=== PATIENT | female | born 1970 ===

== ENCOUNTER 2022-12-19 19:31 | Outpatient (CLI) | payer OTHER, SELFPAY ==
--- NOTE | 2022-12-23 08:46 | W.PM.SLEEP ---
Sleep Study Details Details Interpreting Provider: Viri Date of Sleep Study: 12/19/22 Sleep Study Details: STUDY TYPE:? Home unattended ? BMI:? 32.6 ORDERING PROVIDER:? Viri INDICATION:? Concerns about sleep apnea ? SLEEP SUMMARY:? 488.8 minutes monitored RESPIRATORY SUMMARY:? AHI 9.2 with minimal positional variation Low oxygen 89 Snoring 17.7% PERIODIC LIMB MOVEMENTS OF SLEEP:? Not recorded during home study CARDIAC:? Range 49-82, mean 61.3 IMPRESSION:? Mild obstructive sleep apnea RECOMMENDATION: Treatment options would include CPAP AutoSet 4-17, dental appliance and/or airway expansion surgery.
== END 2022-12-19 19:32 | disposition home or self-care (01) ==
LOC: SLEEP 19:31
PROVIDERS: Visit Provider Otolaryngology
DX: G47.33 Obstructive sleep apnea (adult) (pediatric) (principal)
CPT/HCPCS: 95806

== ENCOUNTER 2023-04-01 08:14 | Day surgery (SDC) | payer OTHER, SELFPAY ==
[2023-04-01] VITALS (17 sets, daily range): BP systolic 130–164; BP diastolic 60–93; PULSE 60–78; RESP 12–16; TEMP 36.2–36.5; O2SAT 93–100; BMI 33.8
[2023-04-01] MEDS: OXYMETAZOLINE 0.05% NASAL SPRAY 2 SPRAY NOSTRIL-B (08:15)
[2023-04-01 08:40] LABS: Ur HCG Qualitative* Negative (Negative)
[2023-04-01] MEDS: SODIUM CHLORIDE 0.9 % (FLUSH) 10 ML SYRINGE IVF (08:40)
[2023-04-01] MEDS: LACTATED RINGERS 1000 ML 1,000 ML 100 ML IV (08:40)
[2023-04-01] MEDS: SCOPOLAMINE 1 MG/3 DAY PATCH 1 PATCH TRANSDERMA (08:40)
--- NOTE | 2023-04-01 09:14 | W.ANESCHARGE ---
Anesthesia Charges Start Date/Time Anesthesia Start Date: 04/01/23 Anesthesia Start Time: 09:31 Stop Date/Time Anesthesia Stop Date: 04/01/23 Anesthesia Stop Time: 10:20
[2023-04-01] MEDS: COCAINE HCL 4 % 4 ML SOLUTION NOSTRIL-B (09:46)
[2023-04-01] MEDS: BUPIVACAINE 0.5 %/EPI 1:200K 30 ML INJECTION (09:55)
[2023-04-01] MEDS: AYR SALINE NASAL GEL 1 APPLIC NOSTRIL-B (09:55)
[2023-04-01] MEDS: MUPIROCIN 1 GM PACKET 1 APPLIC TOPICAL (10:05)
--- NOTE | 2023-04-01 10:19 | W.ANESCHARGE ---
Anesthesia Charges Start Date/Time Anesthesia Start Date: 04/01/23 Anesthesia Start Time: 09:31 Stop Date/Time Anesthesia Stop Date: 04/01/23 Anesthesia Stop Time: 10:20
[2023-04-01] MEDS: ONDANSETRON 2 MG/ML inj 4 MG IVP (10:58)
[2023-04-01] MEDS: METOCLOPRAMIDE HCL 5 MG/ML INJ 10 MG IVP (11:37)
--- NOTE | 2023-04-01 12:14 | P.ENTPROC_ITS ---
Procedure Note Date of procedure: 04/01/23 Procedure: Preoperative diagnosis nasal obstruction, nasal headache, deviated nasal septum, inferior turbinate hypertrophy, left middle turbinate gail bullosa, right middle turbinate hypertrophy Postoperative diagnosis same Procedure nasal septoplasty, submucous partial resection inferior turbinate bilateral, endoscopic partial resection left middle turbinate gail bullosa, narrowing of right middle turbinate Under general endotracheal anesthesia patient was prepped and draped in usual fashion the nose injected and decongested. A right hemitransfixion incision was made left anterior and posterior tunnels were created. A vertical incision was made through the cartilage anterior to the bony cartilaginous junction and a right posterior tunnel created. The posterior deflected portions of septal bone were resected and a large piece was trimmed and returned to the posterior intraseptal space. The mid transfixion was closed with 2 4-0 chromic sutures. The left middle turbinate gail was incised along its inferolateral aspect and then a tunnel created with a Arianna dissector. The gail bone was then infracture the turbinate crushed with the Star forceps. The right middle turbinate was simply crushed with the Parmelee forceps. A stab incision was made in the anterior head of the left inferior turbinate a tunnel created with a Iredell dissector. A conservative anterior submucous resection was performed followed by the Coblation Wand for hemostasis. This was repeated on the right side in identical fashion. Silastic stents were secured with 3-0 nylon and Merocel packing was placed beneath the middle turbinates on each side. The patient procedure well was taken recovery in satisfactory condition blood loss during procedure less than 10 mL. Surgeon: Geoff Jorge MD
[2023-04-01] MEDS: LACTATED RINGERS 1000 ML 1,000 ML 50 ML IV (13:30)
== END 2023-04-01 13:30 | disposition home or self-care (01) ==
LOC: OR 08:16
PROVIDERS: Anesthesiology; Visit Provider Otolaryngology
PROC: (CPT 30520; principal; 2023-04-01 09:30)
DX: J34.2 Deviated nasal septum (principal); J34.3 Hypertrophy of nasal turbinates; R51.9 Headache, unspecified; J34.89 Other specified disorders of nose and nasal sinuses
CPT/HCPCS: 30520; 30140; 31240; 00160; 81025; A9270; J0330; J1100; J2405; J2704; J2765; J3010; J3490; J7120

== ENCOUNTER 2025-04-02 09:52 | Outpatient (CLI) | payer BC, SELFPAY | END 2025-04-02 09:53 | disposition home or self-care (01) | LOC: LKVREF 09:54 | PROVIDERS: Visit Provider Otolaryngology | DX: J34.89 Other specified disorders of nose and nasal sinuses (principal) | CPT/HCPCS: 83036; 83516 ==

== ENCOUNTER 2025-04-09 07:37 | Outpatient (CLI) | payer BC, SELFPAY ==
--- NOTE | 2025-04-09 08:00 | CRLHL7_ITS ---
For Patients: As a result of the Century Cures Act, medical imaging exams and procedure reports are released immediately into your electronic medical record. You may view this report before your referring provider. If you have questions, please contact your health care provider. Indication: CHRONIC SINUSITIS Technique: Performed without IV contrast Comparison: None available Findings: Frontal sinuses: Clear. Ethmoid sinuses: Clear. Maxillary sinuses: 1.7 cm mucous retention cyst within the inferior left maxillary sinus. Right maxillary sinuses clear. The maxillary sinus drainage pathways are patent on both sides. Sphenoid sinuses: Clear, including both sphenoethmoidal recesses. Nasal Cavity: Paradoxical turn of the right middle turbinate. No TMJ abnormalities identified. The visualized portions of the orbits, intracranial contents and upper soft tissue neck are grossly negative. Impression: 1. Left maxillary sinus mucous retention cyst. 2. Nasal septum is midline. Paradoxical turn of the right middle turbinate noted. Please note that all CT scans at this facility use dose modulation, iterative reconstruction, and/or weight-based dosing when appropriate to reduce radiation dose to as low as reasonably achievable. Dictated by Eddie Sorensen MD @ 04/09/2025 10:49:57 AM (Electronically Signed)
== END 2025-04-09 07:38 | disposition home or self-care (01) ==
LOC: CT 07:38
PROVIDERS: PCP Family Medicine; Visit Provider Otolaryngology
DX: J32.9 Chronic sinusitis, unspecified (principal); J32.0 Chronic maxillary sinusitis; J34.2 Deviated nasal septum
CPT/HCPCS: 70486